=== PATIENT | female | born 1935 | race Caucasian/White ===

== ENCOUNTER 2018-10-13 20:11 | Emergency (ER) | payer MEDICARE, OTHER ==
[2018-10-13 22:52] LABS: ADD MAN DIFF? NO
[2018-10-13 23:00] LABS: BASOPHIL # 0.1 10^3/ul (0.0-0.1); BASOPHILS % 0.6 % (0.0-2.0); EOSINOPHILS # 0.3 10^3/ul (0.0-0.5); EOSINOPHILS % 2.6 % (0.0-7.0); HEMATOCRIT 41.7 % (37.0-47.0); HEMOGLOBIN 13.6 g/dl (12.0-16.0); LYMPHOCYTES # 2.8 10^3/ul (0.8-2.9); MEAN CORPUSCULAR HEMOGLOBIN 30.5 pg (29.0-33.0); MEAN CORPUSCULAR HGB CONC 32.6 g/dl (32.0-37.0); MEAN CORPUSCULAR VOLUME 93.5 fl (82.0-101.0); MEAN PLATELET VOLUME 11.1 fl (7.4-10.4); MONOCYTE # 0.8 10^3/ul (0.3-0.9); MONOCYTES % 8.3 % (0.0-11.0); PLATELET COUNT 165 10^3/UL (140-415); RED BLOOD COUNT 4.46 10^6/ul (4.20-5.40); RED CELL DISTRIBUTION WIDTH 12.9 % (11.5-14.5)
[2018-10-13 23:00] LABS: WHITE BLOOD COUNT 9.9 10^3/ul (4.8-10.8)
[2018-10-13 23:01] LABS: POSITIVE DIFF @See below
[2018-10-13 23:14] LABS: ANION GAP 8 (5-13); BLOOD UREA NITROGEN 40 mg/dl (7-20); CALCIUM 9.1 mg/dl (8.4-10.2); CARBON DIOXIDE 25 mmol/L (21-31); CHLORIDE 108 mmol/L (97-110); CREATININE 0.98 mg/dl (0.44-1.00); GLUCOSE 102 mg/dl (70-220); POTASSIUM 4.7 mmol/L (3.5-5.1); SODIUM 141 mmol/L (135-144)
== END 2018-10-14 10:30 | disposition home or self-care (01) ==
LOC: E/R 10-14 10:30
DX: L03.90 Cellulitis, unspecified (principal); I10 Essential (primary) hypertension
CPT/HCPCS: 36415; 73630-LT; 80048; 85025; 99284-25

== ENCOUNTER 2018-10-22 14:48 | Inpatient (IN) | payer MEDICARE, OTHER ==
[2018-10-22 18:48] LABS: ADD MAN DIFF? NO
[2018-10-22 18:53] LABS: BASOPHILS % 0.5 % (0.0-2.0); EOSINOPHILS # 0.3 10^3/ul (0.0-0.5); EOSINOPHILS % 3.3 % (0.0-7.0); HEMATOCRIT 41.1 % (37.0-47.0); HEMOGLOBIN 13.5 g/dl (12.0-16.0); LYMPHOCYTES # 2.2 10^3/ul (0.8-2.9); LYMPHOCYTES % 28.9 % (15.0-51.0); MEAN CORPUSCULAR HEMOGLOBIN 30.9 pg (29.0-33.0); MEAN CORPUSCULAR HGB CONC 32.8 g/dl (32.0-37.0); MEAN CORPUSCULAR VOLUME 94.1 fl (82.0-101.0); MEAN PLATELET VOLUME 10.6 fl (7.4-10.4); MONOCYTE # 0.5 10^3/ul (0.3-0.9); MONOCYTES % 6.5 % (0.0-11.0); NEUTROPHIL # 4.7 10^3/ul (1.6-7.5); NEUTROPHILS % 60.7 % (39.0-77.0); PLATELET COUNT 231 10^3/UL (140-415); RED BLOOD COUNT 4.37 10^6/ul (4.20-5.40); RED CELL DISTRIBUTION WIDTH 13.2 % (11.5-14.5)
[2018-10-22 18:53] LABS: WHITE BLOOD COUNT 7.7 10^3/ul (4.8-10.8)
[2018-10-22 19:14] LABS: ANION GAP 7 (5-13); BLOOD UREA NITROGEN 27 mg/dl (7-20); CALCIUM 9.6 mg/dl (8.4-10.2); CARBON DIOXIDE 25 mmol/L (21-31); CHLORIDE 108 mmol/L (97-110); GLUCOSE 102 mg/dl (70-220); POTASSIUM 4.6 mmol/L (3.5-5.1); SODIUM 140 mmol/L (135-144)
[2018-10-22 19:15] LABS: C-REACTIVE PROTEIN < 0.5 mg/dl (0.0-0.9)
[2018-10-22] MEDS: VANCOMYCIN 1 GM (PMX) 250 ML IVPB (20:02)
[2018-10-22] MEDS ORDERED: ACETAMINOPHEN 325 MG TAB PO (22:00)
[2018-10-22] MEDS ORDERED: ONDANSETRON 4 MG INJ IV (22:00)
[2018-10-23] MEDS ORDERED: ALBUTEROL/IPRATROPIUM (NEB) 3 ML AMP HHN
[2018-10-23] MEDS ORDERED: NACL 0.9% 3 ML SYG IV
[2018-10-23] MEDS ORDERED: HYDROCODONE/APAP (5/325) TAB PO ×2
[2018-10-23] MEDS ORDERED: ONDANSETRON 4 MG INJ IV
[2018-10-23] MEDS ORDERED: ACETAMINOPHEN 325 MG TAB PO
[2018-10-23 05:25] LABS: ADD MAN DIFF? NO; BASOPHIL # 0.1 10^3/ul (0.0-0.1); BASOPHILS % 0.8 % (0.0-2.0); EOSINOPHILS # 0.2 10^3/ul (0.0-0.5); EOSINOPHILS % 3.9 % (0.0-7.0); HEMOGLOBIN 12.7 g/dl (12.0-16.0); LYMPHOCYTES # 1.9 10^3/ul (0.8-2.9); LYMPHOCYTES % 30.1 % (15.0-51.0); MEAN CORPUSCULAR HEMOGLOBIN 30.7 pg (29.0-33.0); MEAN CORPUSCULAR HGB CONC 32.6 g/dl (32.0-37.0); MEAN CORPUSCULAR VOLUME 94.2 fl (82.0-101.0); MEAN PLATELET VOLUME 10.6 fl (7.4-10.4); MONOCYTE # 0.6 10^3/ul (0.3-0.9); MONOCYTES % 9.4 % (0.0-11.0); NEUTROPHIL # 3.4 10^3/ul (1.6-7.5); NEUTROPHILS % 55.6 % (39.0-77.0); PLATELET COUNT 218 10^3/UL (140-415); RED BLOOD COUNT 4.14 10^6/ul (4.20-5.40); RED CELL DISTRIBUTION WIDTH 13.4 % (11.5-14.5)
[2018-10-23 05:25] LABS: WHITE BLOOD COUNT 6.2 10^3/ul (4.8-10.8)
[2018-10-23 05:47] LABS: ALANINE AMINOTRANSFERASE 17 IU/L (13-69); ALBUMIN 3.7 g/dl (3.3-4.9); ALBUMIN/GLOBULIN RATIO 1.08; ALKALINE PHOSPHATASE 62 IU/L (42-121); ANION GAP 13 (5-13); ASPARTATE AMINO TRANSFERASE 28 IU/L (15-46); BILIRUBIN,INDIRECT 0.3 mg/dl (0-1.1); BILIRUBIN,TOTAL 0.3 mg/dl (0.2-1.3); BLOOD UREA NITROGEN 29 mg/dl (7-20); CALCIUM 9.2 mg/dl (8.4-10.2); CARBON DIOXIDE 24 mmol/L (21-31); CHLORIDE 109 mmol/L (97-110); CREATININE 1.13 mg/dl (0.44-1.00); GLUCOSE 83 mg/dl (70-220); MAGNESIUM 2.1 mg/dl (1.7-2.5); PHOSPHORUS 4.3 mg/dl (2.5-4.9); POTASSIUM 4.8 mmol/L (3.5-5.1); SODIUM 146 mmol/L (135-144); TOTAL PROTEIN 7.1 g/dl (6.1-8.1)
[2018-10-23] MEDS: LEVOTHYROXINE 88 MCG TAB PO (06:22)
[2018-10-23] MEDS: HEPARIN 5,000 UNIT/1 ML VIAL SC ×2 (09:00→21:28)
[2018-10-23] MEDS: GABAPENTIN 300 MG CAP PO ×3 (09:03→21:21)
[2018-10-23] MEDS: DOCUSATE SODIUM 100 MG CAP PO ×2 (09:03→21:21)
[2018-10-23] MEDS: AMLODIPINE 10 MG TAB PO (09:04)
[2018-10-23] MEDS: ASPIRIN (EC) 81 MG TAB PO (09:04)
[2018-10-23] MEDS: TRIMETHOPRIM/SULFAMETHOX (DS) TAB PO (09:04)
[2018-10-23] MEDS: hydrALAzine 20 MG INJ IV (09:11)
[2018-10-23 12:35] LABS: HEMOGLOBIN A1C 5.1 % (0-5.9)
[2018-10-23] MEDS: CEFTRIAXONE 1 GM/50 ML (PMX) 50 ML IVPB (13:08)
[2018-10-23] MEDS: SOD CHLORIDE 0.45% 1,000 ML IV ×2 (13:09→23:47)
[2018-10-23] MEDS: ATORVASTATIN 10 MG TAB PO (21:21)
[2018-10-24 05:10] LABS: ADD MAN DIFF? NO
[2018-10-24 05:20] LABS: WHITE BLOOD COUNT 6.1 10^3/ul (4.8-10.8)
[2018-10-24 05:20] LABS: BASOPHIL # 0.1 10^3/ul (0.0-0.1); BASOPHILS % 0.8 % (0.0-2.0); EOSINOPHILS # 0.2 10^3/ul (0.0-0.5); EOSINOPHILS % 3.8 % (0.0-7.0); HEMATOCRIT 39.6 % (37.0-47.0); LYMPHOCYTES # 2.3 10^3/ul (0.8-2.9); LYMPHOCYTES % 38.1 % (15.0-51.0); MEAN CORPUSCULAR HEMOGLOBIN 30.9 pg (29.0-33.0); MEAN CORPUSCULAR HGB CONC 32.8 g/dl (32.0-37.0); MEAN CORPUSCULAR VOLUME 94.1 fl (82.0-101.0); MEAN PLATELET VOLUME 10.5 fl (7.4-10.4); MONOCYTE # 0.4 10^3/ul (0.3-0.9); MONOCYTES % 7.2 % (0.0-11.0); NEUTROPHILS % 49.9 % (39.0-77.0); PLATELET COUNT 209 10^3/UL (140-415); RED BLOOD COUNT 4.21 10^6/ul (4.20-5.40); RED CELL DISTRIBUTION WIDTH 13.5 % (11.5-14.5)
[2018-10-24] MEDS: hydrALAzine 20 MG INJ IV ×2 (05:38→17:16)
[2018-10-24] MEDS: LEVOTHYROXINE 88 MCG TAB PO (05:39)
[2018-10-24 05:53] LABS: ANION GAP 7 (5-13); BLOOD UREA NITROGEN 22 mg/dl (7-20); CARBON DIOXIDE 25 mmol/L (21-31); CHLORIDE 109 mmol/L (97-110); CREATININE 0.92 mg/dl (0.44-1.00); GLUCOSE 89 mg/dl (70-220); POTASSIUM 4.3 mmol/L (3.5-5.1); SODIUM 141 mmol/L (135-144)
[2018-10-24] MEDS: AMLODIPINE 10 MG TAB PO (08:58)
[2018-10-24] MEDS: GABAPENTIN 300 MG CAP PO ×2 (08:58→12:27)
[2018-10-24] MEDS: DOCUSATE SODIUM 100 MG CAP PO (08:58)
[2018-10-24] MEDS: ASPIRIN (EC) 81 MG TAB PO (08:58)
[2018-10-24] MEDS: HEPARIN 5,000 UNIT/1 ML VIAL SC (09:04)
[2018-10-24] MEDS: SOD CHLORIDE 0.45% 1,000 ML IV (09:15)
[2018-10-24] MEDS: CEFTRIAXONE 1 GM/50 ML (PMX) 50 ML IVPB (11:50)
== END 2018-10-24 17:30 | disposition home or self-care (01) | DRG 603 ==
LOC: E/R 14:48 → 2NE 21:49
DX: L03.116 Cellulitis of left lower limb (principal); N17.9 Acute kidney failure, unspecified; I10 Essential (primary) hypertension; E03.9 Hypothyroidism, unspecified; E78.5 Hyperlipidemia, unspecified; I73.9 Peripheral vascular disease, unspecified
CPT/HCPCS: 73630-LT; 80048; 80053; 83036; 83735; 84100; 85025; 86140; 96365; 96366; 97161; 99285-25

== ENCOUNTER 2019-02-17 01:05 | Inpatient (IN) | payer MEDICARE, OTHER ==
[2019-02-17] MEDS ORDERED: VANCOMYCIN 1 GM (PMX) 250 ML IVPB (01:18)
[2019-02-17 01:51] LABS: ADD MAN DIFF? NO
[2019-02-17 01:55] LABS: BASOPHILS % 0.4 % (0.0-2.0); EOSINOPHILS # 0.2 10^3/ul (0.0-0.5); HEMATOCRIT 40.7 % (37.0-47.0); HEMOGLOBIN 13.5 g/dl (12.0-16.0); LYMPHOCYTES # 2.2 10^3/ul (0.8-2.9); LYMPHOCYTES % 24.1 % (15.0-51.0); MEAN CORPUSCULAR HEMOGLOBIN 30.4 pg (29.0-33.0); MEAN CORPUSCULAR HGB CONC 33.2 g/dl (32.0-37.0); MEAN CORPUSCULAR VOLUME 91.7 fl (82.0-101.0); MEAN PLATELET VOLUME 11.1 fl (7.4-10.4); MONOCYTE # 0.7 10^3/ul (0.3-0.9); MONOCYTES % 8.1 % (0.0-11.0); NEUTROPHIL # 5.9 10^3/ul (1.6-7.5); NEUTROPHILS % 65.1 % (39.0-77.0); PLATELET COUNT 255 10^3/UL (140-415); RED BLOOD COUNT 4.44 10^6/ul (4.20-5.40)
[2019-02-17 01:55] LABS: WHITE BLOOD COUNT 9.1 10^3/ul (4.8-10.8)
[2019-02-17] MEDS: PIPER-TAZO 3.375 GM IV (PMX) 100 ML IVPB (02:10)
[2019-02-17] MEDS: morphine 4 MG/ML VIAL IV (02:10)
[2019-02-17 02:14] LABS: ALANINE AMINOTRANSFERASE 22 IU/L (13-69); ALBUMIN 3.9 g/dl (3.3-4.9); ALBUMIN/GLOBULIN RATIO 0.97; ALKALINE PHOSPHATASE 88 IU/L (42-121); ANION GAP 10 (5-13); ASPARTATE AMINO TRANSFERASE 23 IU/L (15-46); BILIRUBIN,INDIRECT 0.4 mg/dl (0-1.1); BILIRUBIN,TOTAL 0.4 mg/dl (0.2-1.3); BLOOD UREA NITROGEN 27 mg/dl (7-20); C-REACTIVE PROTEIN 1.6 mg/dl (0.0-0.9); CALCIUM 9.5 mg/dl (8.4-10.2); CARBON DIOXIDE 26 mmol/L (21-31); CHLORIDE 106 mmol/L (97-110); CREATININE 0.81 mg/dl (0.44-1.00); GLUCOSE 101 mg/dl (70-220); POTASSIUM 4.4 mmol/L (3.5-5.1); SODIUM 142 mmol/L (135-144); TOTAL PROTEIN 7.9 g/dl (6.1-8.1)
[2019-02-17 02:15] LABS: LACTIC ACID 1.1 mmol/L (0.5-2.0)
[2019-02-17 02:15] LABS: INR 0.98; PROTIME 13.1 Sec (11.9-14.9)
[2019-02-17 02:22] LABS: TROPONIN-I < 0.012 ng/ml (0.000-0.120)
[2019-02-17 04:24] LABS: ERYTHROCYTE SEDIMENTATION RATE 48 mm/Hr (0-30)
[2019-02-17] MEDS ORDERED: HYDROCODONE/APAP (5/325) TAB PO (04:30)
[2019-02-17] MEDS ORDERED: ONDANSETRON 4 MG INJ IV (04:30)
[2019-02-17] MEDS ORDERED: NACL 0.9% 3 ML SYG IV (04:30)
[2019-02-17 05:30] LABS: LACTIC ACID 1.1 mmol/L (0.5-2.0)
[2019-02-17] MEDS ORDERED: VANCOMYCIN IV PER PHARMACY XX (05:30)
[2019-02-17] MEDS: VANCOMYCIN HCL 1.5 GM in SOD CHLORIDE 0.9% 250 ML IVPB (06:08)
[2019-02-17] MEDS: LEVOTHYROXINE 88 MCG TAB PO (06:24)
[2019-02-17] MEDS: CEFTRIAXONE 1 GM/50 ML (PMX) 50 ML IVPB (08:55)
[2019-02-17] MEDS: DOCUSATE SODIUM 100 MG CAP PO ×2 (08:55→21:00)
[2019-02-17] MEDS: GABAPENTIN 300 MG CAP PO ×3 (08:56→21:01)
[2019-02-17] MEDS: AMLODIPINE 10 MG TAB PO (08:56)
[2019-02-17] MEDS: ASPIRIN (EC) 81 MG TAB PO (08:56)
[2019-02-17] MEDS: HYDROCODONE/APAP (5/325) TAB PO (09:10)
[2019-02-17] MEDS ORDERED: VANCOMYCIN HCL 1.5 GM in SOD CHLORIDE 0.9% 250 ML IVPB (12:00)
[2019-02-17] MEDS: ACETAMINOPHEN 325 MG TAB PO (21:01)
[2019-02-17] MEDS: ATORVASTATIN 10 MG TAB PO (21:01)
[2019-02-18] MEDS: ACETAMINOPHEN 325 MG TAB PO (04:03)
[2019-02-18 05:38] LABS: ADD MAN DIFF? NO
[2019-02-18] MEDS: LEVOTHYROXINE 88 MCG TAB PO (05:42)
[2019-02-18] MEDS: VANCOMYCIN 1 GM 250 ML IVPB (05:42)
[2019-02-18 05:43] LABS: WHITE BLOOD COUNT 8.3 10^3/ul (4.8-10.8)
[2019-02-18 05:43] LABS: BASOPHIL # 0.1 10^3/ul (0.0-0.1); BASOPHILS % 0.6 % (0.0-2.0); EOSINOPHILS # 0.2 10^3/ul (0.0-0.5); EOSINOPHILS % 2.6 % (0.0-7.0); HEMATOCRIT 39.4 % (37.0-47.0); HEMOGLOBIN 12.7 g/dl (12.0-16.0); LYMPHOCYTES # 1.9 10^3/ul (0.8-2.9); LYMPHOCYTES % 22.4 % (15.0-51.0); MEAN CORPUSCULAR HEMOGLOBIN 30.3 pg (29.0-33.0); MEAN CORPUSCULAR HGB CONC 32.2 g/dl (32.0-37.0); MEAN PLATELET VOLUME 11.1 fl (7.4-10.4); MONOCYTE # 0.7 10^3/ul (0.3-0.9); MONOCYTES % 8.3 % (0.0-11.0); NEUTROPHIL # 5.5 10^3/ul (1.6-7.5); NEUTROPHILS % 65.9 % (39.0-77.0); PLATELET COUNT 246 10^3/UL (140-415); RED BLOOD COUNT 4.19 10^6/ul (4.20-5.40); RED CELL DISTRIBUTION WIDTH 13.1 % (11.5-14.5)
[2019-02-18 05:55] LABS: HEMOGLOBIN A1C 5.1 % (0-5.9)
[2019-02-18 06:00] LABS: ALANINE AMINOTRANSFERASE 17 IU/L (13-69); ALBUMIN 3.6 g/dl (3.3-4.9); ALBUMIN/GLOBULIN RATIO 1.09; ALKALINE PHOSPHATASE 63 IU/L (42-121); ANION GAP 9 (5-13); ASPARTATE AMINO TRANSFERASE 25 IU/L (15-46); BILIRUBIN,INDIRECT 0.5 mg/dl (0-1.1); BILIRUBIN,TOTAL 0.5 mg/dl (0.2-1.3); BLOOD UREA NITROGEN 31 mg/dl (7-20); CALCIUM 9.1 mg/dl (8.4-10.2); CARBON DIOXIDE 27 mmol/L (21-31); CHLORIDE 105 mmol/L (97-110); CHOL/HDL RATIO 3.2 RATIO; CHOLESTEROL 122 mg/dl (100-200); CREATININE 0.81 mg/dl (0.44-1.00); GLUCOSE 90 mg/dl (70-220); HDL CHOLESTEROL 38 mg/dl (33-92); LDL CHOLESTEROL,CALCULATED 53 mg/dl; MAGNESIUM 2.1 mg/dl (1.7-2.5); PHOSPHORUS 4.7 mg/dl (2.5-4.9); POTASSIUM 4.5 mmol/L (3.5-5.1); SODIUM 141 mmol/L (135-144); TOTAL PROTEIN 6.9 g/dl (6.1-8.1); TRIGLYCERIDES 154 mg/dl (0-149)
[2019-02-18] MEDS: AMLODIPINE 10 MG TAB PO (08:14)
[2019-02-18] MEDS: ASPIRIN (EC) 81 MG TAB PO (08:14)
[2019-02-18] MEDS: DOCUSATE SODIUM 100 MG CAP PO ×2 (08:14→21:08)
[2019-02-18] MEDS: CEFTRIAXONE 1 GM/50 ML (PMX) 50 ML IVPB (08:15)
[2019-02-18] MEDS: GABAPENTIN 300 MG CAP PO ×3 (08:16→21:08)
[2019-02-18] MEDS: hydrALAzine 20 MG INJ IV (09:44)
[2019-02-18] MEDS: LOSARTAN 50 MG TAB PO (14:34)
[2019-02-18] MEDS: TERBINAFINE 250 MG TAB PO (14:38)
[2019-02-18] MEDS: CLOTRIMAZOLE 1% 30 GM CR TOP ×2 (14:38→21:08)
[2019-02-18] MEDS: ENOXAPARIN 40 MG/0.4 ML SYG SC (14:39)
[2019-02-18] MEDS: ATORVASTATIN 10 MG TAB PO (21:08)
[2019-02-19 05:56] LABS: ANION GAP 6 (5-13); BLOOD UREA NITROGEN 29 mg/dl (7-20); CALCIUM 8.7 mg/dl (8.4-10.2); CARBON DIOXIDE 27 mmol/L (21-31); CHLORIDE 109 mmol/L (97-110); CREATININE 1.01 mg/dl (0.44-1.00); GLUCOSE 92 mg/dl (70-220); POTASSIUM 4.1 mmol/L (3.5-5.1); SODIUM 142 mmol/L (135-144)
[2019-02-19] MEDS: LEVOTHYROXINE 88 MCG TAB PO (06:34)
[2019-02-19] MEDS: VANCOMYCIN 1 GM 250 ML IVPB (06:35)
[2019-02-19] MEDS ORDERED: NEOMYC/POLYMYX/BACIT 30 GM OINT TOP (09:00)
[2019-02-19] MEDS: SOD CHLORIDE 0.9% 100 ML (09:00)
[2019-02-19] MEDS: IOHEXOL 100 ML (09:02)
[2019-02-19] MEDS: IOHEXOL 350MG/ML 50 ML BTL (09:04)
[2019-02-19] MEDS: DOCUSATE SODIUM 100 MG CAP PO ×2 (09:18→21:21)
[2019-02-19] MEDS: CEFTRIAXONE 1 GM/50 ML (PMX) 50 ML IVPB (09:18)
[2019-02-19] MEDS: LOSARTAN 50 MG TAB PO (09:19)
[2019-02-19] MEDS: TERBINAFINE 250 MG TAB PO (09:19)
[2019-02-19] MEDS: AMLODIPINE 10 MG TAB PO (09:19)
[2019-02-19] MEDS: ASPIRIN (EC) 81 MG TAB PO (09:19)
[2019-02-19] MEDS: ENOXAPARIN 40 MG/0.4 ML SYG SC (09:27)
[2019-02-19] MEDS: GABAPENTIN 300 MG CAP PO ×3 (09:27→21:21)
[2019-02-19] MEDS: CLOTRIMAZOLE 1% 30 GM CR TOP ×2 (11:37→21:21)
[2019-02-19] MEDS: ATORVASTATIN 10 MG TAB PO (21:21)
[2019-02-19] MEDS: NYSTATIN 15 GM OINT TOP (21:22)
[2019-02-20 05:30] LABS: ADD MAN DIFF? NO; BASOPHILS % 0.4 % (0.0-2.0); EOSINOPHILS # 0.2 10^3/ul (0.0-0.5); EOSINOPHILS % 2.3 % (0.0-7.0); HEMOGLOBIN 12.3 g/dl (12.0-16.0); LYMPHOCYTES # 1.9 10^3/ul (0.8-2.9); LYMPHOCYTES % 22.8 % (15.0-51.0); MEAN CORPUSCULAR HEMOGLOBIN 30.5 pg (29.0-33.0); MEAN CORPUSCULAR HGB CONC 32.4 g/dl (32.0-37.0); MEAN CORPUSCULAR VOLUME 94.3 fl (82.0-101.0); MEAN PLATELET VOLUME 11.1 fl (7.4-10.4); MONOCYTE # 0.7 10^3/ul (0.3-0.9); MONOCYTES % 8.4 % (0.0-11.0); NEUTROPHIL # 5.5 10^3/ul (1.6-7.5); NEUTROPHILS % 65.9 % (39.0-77.0); PLATELET COUNT 242 10^3/UL (140-415); RED BLOOD COUNT 4.03 10^6/ul (4.20-5.40); RED CELL DISTRIBUTION WIDTH 13.3 % (11.5-14.5)
[2019-02-20 05:30] LABS: WHITE BLOOD COUNT 8.4 10^3/ul (4.8-10.8)
[2019-02-20 06:05] LABS: ANION GAP 9 (5-13); BLOOD UREA NITROGEN 32 mg/dl (7-20); CALCIUM 8.8 mg/dl (8.4-10.2); CARBON DIOXIDE 26 mmol/L (21-31); CHLORIDE 107 mmol/L (97-110); CREATININE 0.93 mg/dl (0.44-1.00); GLUCOSE 91 mg/dl (70-220); POTASSIUM 4.1 mmol/L (3.5-5.1); SODIUM 142 mmol/L (135-144)
[2019-02-20 06:21] LABS: VANCOMYCIN,TROUGH 10.4 ug/ml (10.0-20.0)
[2019-02-20] MEDS: VANCOMYCIN 1 GM 250 ML IVPB (06:45)
[2019-02-20] MEDS: LEVOTHYROXINE 88 MCG TAB PO (06:45)
[2019-02-20 07:03] LABS: MAGNESIUM 2.2 mg/dl (1.7-2.5)
[2019-02-20 07:03] LABS: PHOSPHORUS 4.4 mg/dl (2.5-4.9)
[2019-02-20] MEDS: DOCUSATE SODIUM 100 MG CAP PO ×2 (09:43→22:36)
[2019-02-20] MEDS: CEFTRIAXONE 1 GM/50 ML (PMX) 50 ML IVPB (09:43)
[2019-02-20] MEDS: AMLODIPINE 10 MG TAB PO (09:44)
[2019-02-20] MEDS: GABAPENTIN 300 MG CAP PO ×3 (09:44→22:39)
[2019-02-20] MEDS: LOSARTAN 50 MG TAB PO (09:44)
[2019-02-20] MEDS: TERBINAFINE 250 MG TAB PO (09:45)
[2019-02-20] MEDS: ASPIRIN (EC) 81 MG TAB PO (09:45)
[2019-02-20] MEDS: NYSTATIN 15 GM OINT TOP ×3 (09:45→22:45)
[2019-02-20] MEDS: CLOTRIMAZOLE 1% 30 GM CR TOP ×2 (09:45→22:37)
[2019-02-20] MEDS: ENOXAPARIN 40 MG/0.4 ML SYG SC (09:49)
[2019-02-20 11:05] LABS: AMYLASE 128 U/L (11-123)
[2019-02-20 11:05] LABS: LIPASE 145 U/L (23-300)
[2019-02-20 12:48] LABS: CANCER ANTIGEN 19-9 18.5 U/ml (0.0-37.0)
[2019-02-20] MEDS: ATORVASTATIN 10 MG TAB PO (21:00)
[2019-02-20] MEDS: BALSAM PERU/CASTOR OIL 60 GM TUBE TOP (22:41)
[2019-02-21] MEDS: VANCOMYCIN HCL 1.25 GM in SOD CHLORIDE 0.9% 250 ML IVPB (05:35)
[2019-02-21 05:56] LABS: ADD MAN DIFF? NO
[2019-02-21 06:01] LABS: WHITE BLOOD COUNT 8.4 10^3/ul (4.8-10.8)
[2019-02-21 06:01] LABS: BASOPHIL # 0.1 10^3/ul (0.0-0.1); BASOPHILS % 0.6 % (0.0-2.0); EOSINOPHILS # 0.3 10^3/ul (0.0-0.5); HEMATOCRIT 36.4 % (37.0-47.0); HEMOGLOBIN 11.9 g/dl (12.0-16.0); LYMPHOCYTES # 1.7 10^3/ul (0.8-2.9); LYMPHOCYTES % 20.5 % (15.0-51.0); MEAN CORPUSCULAR HEMOGLOBIN 30.7 pg (29.0-33.0); MEAN CORPUSCULAR HGB CONC 32.7 g/dl (32.0-37.0); MEAN CORPUSCULAR VOLUME 94.1 fl (82.0-101.0); MONOCYTE # 0.7 10^3/ul (0.3-0.9); NEUTROPHIL # 5.7 10^3/ul (1.6-7.5); NEUTROPHILS % 67.7 % (39.0-77.0); PLATELET COUNT 244 10^3/UL (140-415); RED BLOOD COUNT 3.87 10^6/ul (4.20-5.40); RED CELL DISTRIBUTION WIDTH 12.8 % (11.5-14.5)
[2019-02-21 06:27] LABS: ALANINE AMINOTRANSFERASE 16 IU/L (13-69); ALBUMIN 3.3 g/dl (3.3-4.9); ALKALINE PHOSPHATASE 63 IU/L (42-121); AMYLASE 117 U/L (11-123); ANION GAP 6 (5-13); ASPARTATE AMINO TRANSFERASE 18 IU/L (15-46); BILIRUBIN,INDIRECT 0.6 mg/dl (0-1.1); BILIRUBIN,TOTAL 0.6 mg/dl (0.2-1.3); BLOOD UREA NITROGEN 24 mg/dl (7-20); CARBON DIOXIDE 28 mmol/L (21-31); CHLORIDE 107 mmol/L (97-110); CREATININE 0.81 mg/dl (0.44-1.00); GLUCOSE 94 mg/dl (70-220); LIPASE 120 U/L (23-300); POTASSIUM 4.2 mmol/L (3.5-5.1); SODIUM 141 mmol/L (135-144); TOTAL PROTEIN 6.6 g/dl (6.1-8.1)
[2019-02-21 06:34] LABS: PHOSPHORUS 4.1 mg/dl (2.5-4.9)
[2019-02-21 06:34] LABS: MAGNESIUM 2.2 mg/dl (1.7-2.5)
[2019-02-21] MEDS: ASPIRIN (EC) 81 MG TAB PO (08:56)
[2019-02-21] MEDS: DOCUSATE SODIUM 100 MG CAP PO (08:56)
[2019-02-21] MEDS: LOSARTAN 50 MG TAB PO (08:56)
[2019-02-21] MEDS: LEVOTHYROXINE 88 MCG TAB PO (08:57)
[2019-02-21] MEDS: GABAPENTIN 300 MG CAP PO ×3 (08:57→13:49)
[2019-02-21] MEDS: TERBINAFINE 250 MG TAB PO (08:57)
[2019-02-21] MEDS: AMLODIPINE 10 MG TAB PO (08:57)
[2019-02-21] MEDS: ENOXAPARIN 40 MG/0.4 ML SYG SC (08:59)
[2019-02-21] MEDS: CLOTRIMAZOLE 1% 30 GM CR TOP (09:05)
[2019-02-21] MEDS: NYSTATIN 15 GM OINT TOP ×2 (09:05→13:49)
[2019-02-21] MEDS: BALSAM PERU/CASTOR OIL 60 GM TUBE TOP (09:06)
[2019-02-21] MEDS: CEFTRIAXONE 1 GM/50 ML (PMX) 50 ML IVPB (09:07)
[2019-02-21] MEDS: DOXYCYCLINE 100 MG TAB PO ×2 (12:30→13:48)
[2019-02-21] MEDS: LEVOFLOXACIN 500 MG TAB PO ×2 (13:17→13:49)
[2019-02-21] MEDS: hydrALAzine 20 MG INJ IV ×2 (14:30→19:58)
[2019-02-22] MEDS ORDERED: LEVOFLOXACIN 250 MG TAB PO (06:00)
== END 2019-02-21 20:10 | DRG 300 ==
LOC: E/R 01:05 → 2NE 02:16
PROVIDERS: Internal Medicine
DX: I70.235 Atherosclerosis of native arteries of right leg with ulceration of other part of foot (principal); L03.115 Cellulitis of right lower limb; T82.856A Stenosis of peripheral vascular stent, initial encounter; K86.2 Cyst of pancreas; I10 Essential (primary) hypertension; E03.9 Hypothyroidism, unspecified; E78.5 Hyperlipidemia, unspecified; G62.9 Polyneuropathy, unspecified; I73.9 Peripheral vascular disease, unspecified; B35.3 Tinea pedis; B35.1 Tinea unguium; B35.4 Tinea corporis; B35.6 Tinea cruris
CPT/HCPCS: 36415; 73630; 73718; 75635; 80048; 80053; 80061; 80202; 82150; 82962; 83036; 83605; 83690; 83735; 84100; 84443; 84484; 85025; 85610; 85651; 85730; 86140; 86301; 87040-91; 93005; 93306; 93922; 93971; 99285-25